=== PATIENT | female | born 1985 | race Caucasian/White ===

== ENCOUNTER → 2017-05-28 13:15 | Outpatient (CLI) | payer OTHER, SELFPAY ==
[2017-06-04 11:06] LABS: HPV Reflexed? NOT INDICATED
== END ==
PROVIDERS: Visit Provider Obstetrics & Gynecology
DX: Z12.4 Encounter for screening for malignant neoplasm of cervix (principal)
CPT/HCPCS: 88175; G0145

== ENCOUNTER → 2017-12-12 14:00 | Outpatient (CLI) | payer OTHER, SELFPAY ==
--- NOTE | 2017-12-12 14:00 | SKTAG_PTH ---
PATIENT: JODIE HARRIS LOC: [facility] U#:[id number] AGE/SX: 39/F ROOM: RE12/12/[address]: Dr. Walter Starks MD : [id number] BED: DIS: SPEC #: [id number] RECD: 12/12/17 15:41 STATUS: ADELINA TOBIAS #: [id number] ALEJANDRA: 12/12/17 14:[address]: Walter Starks DEPT: SURGICAL PATHOLOGY RECD BY: Satya Roberts Tissues: Skin appendage, NOS Procedures: Surgery Specimen Level III HEADER OPERATION: Excision of right labial skin tag PRE-OP DIAGNOSIS: N90.9 TISSUE SUBMITTED: Skin tag MICROSCOPIC DIAGNOSIS Skin tag: Fibroepithelial polyp (skin tag). SJ:venancio 12/16/17 MICROSCOPIC DESCRIPTION Slides are reviewed. GROSS DESCRIPTION Received in fixative is one container labeled with the patient's name and designated skin tag. The specimen consists of an irregular fragment of light carranza soft tissue measuring 0.2 x 0.2 x 0.1 cm. The specimen is totally submitted in one cassette. / AM:venancio 12/13/17 TC:5 CPT: 08934
== END ==
PROVIDERS: Referring Provider Obstetrics & Gynecology; Visit Provider Obstetrics & Gynecology
DX: N90.9 Noninflammatory disorder of vulva and perineum, unspecified (principal)
CPT/HCPCS: 88304; 88305

== ENCOUNTER → 2019-07-30 15:55 | Outpatient (CLI) | payer OTHER, SELFPAY ==
[2019-07-30 13:57] VITALS: BMI 24.2
[2019-08-05 06:22] LABS: HPV APTIMA, High Risk Negative (Negative)
== END ==
PROVIDERS: PCP Family Medicine; Referring Provider Nurse Practitioner Women's Health; Visit Provider Nurse Practitioner Women's Health
DX: Z12.4 Encounter for screening for malignant neoplasm of cervix (principal)
CPT/HCPCS: 87624; 88175; G0145

== ENCOUNTER → 2022-10-25 | Outpatient (CLI) | payer BC, SELFPAY ==
--- NOTE | 2022-10-25 14:49 | US_ITS ---
ACR Level 3 findings have been noted. An addendum which confirms receipt of the report will follow. INDICATION: pain, check IUD EXAMINATION: US Pelvis Non OB Complete With Transvaginal Imaging TECHNIQUE: Transabdominal and transvaginal pelvic ultrasound was performed. Grayscale, spectral waveform, and color flow Doppler evaluation of the adnexa. COMPARISON: None. FINDINGS: UTERUS: Anteverted. The uterus measures 8.3 x 4.5 x 3.3 cm. The myometrium is markedly heterogeneous and the junctional zone is difficult to delineate in multiple areas. In the posterior uterine wall there is a slightly heterogeneous 1.2 x 1 x 0.9 cm rim-enhancing hypoechoic mass. The endometrial stripe measures 3 mm in AP diameter which is within normal limits. It is slightly irregular in appearance. An IUD is present in the fundus and is slightly irregular in appearance. RIGHT OVARY: Measures 2.2 x 1.5 x 1.2 cm. Non-enlarged, normal echogenicity. There is normal arterial inflow and venous outflow present in the right ovary. LEFT OVARY: Measures 2.7 x 1.4 x 1.4 cm. Non-enlarged, normal echogenicity. There is normal arterial inflow and venous outflow present in the left ovary. FREE FLUID: None. US/Pelvic (Non ) IMPRESSION: An IUD is present in the fundus and is slightly irregular in appearance. Cannot rule out fracture. Markedly heterogeneous myometrium with difficult delineation of the junctional zone in multiple areas. Differential includes adenomyosis and pelvic inflammatory disease. Cannot rule out malignancy. Recommend female pelvic MR w/ and w/out contrast for further evaluation. 1 cm rim-enhancing hypoechoic lesion in the posterior uterine wall. Differential includes abscess, adenomyoma and leiomyoma. Electronically Signed: Hemanth Garcia MD at 20:33 EDT ,
== END | disposition home or self-care (01) ==
PROVIDERS: PCP Family Medicine; Referring Provider Nurse Practitioner Women's Health; Visit Provider Nurse Practitioner Women's Health
DX: R10.2 Pelvic and perineal pain (principal); G89.29 Other chronic pain; Z30.431 Encounter for routine checking of intrauterine contraceptive device
CPT/HCPCS: 76830; 76856

== ENCOUNTER → 2022-11-22 | Outpatient (CLI) | payer BC, SELFPAY ==
--- NOTE | 2022-11-22 13:23 | MRI_ITS ---
STUDY: MR PELVIS WITH T WITHOUT CONTRAST REASON FOR EXAM: Female, 37 years old. abnormal pelvic ultrasound - TECHNIQUE: Standardized fat and water weighted pulse sequences were obtained in all 3 orthogonal planes, pre-and post contrast administration. 11ML IV CLARISCAN was administered for the contrast portion of the examination. COMPARISON: Pelvic ultrasound dated October 25, 2022 FINDINGS: The uterus is anteflexed and is in a midline position. The uterus measures 8.39 x 3.76 x 5.16 cm. There are 2 mid uterine body anterior posterior intramural fibroids measuring 1.23 x 0.86 cm in the posterior uterine body, and 1.04 x 0.83 cm in the anterior uterine body. 3 additional tiny subcentimeter submucosal fibroids are present in the uterine fundus and proximal body. An IUD is present in the fundus and central aspect of the endometrial cavity in good position. There are no suspicious enhancing lesions of the uterus or endometrial lining on the current study. The endometrium measures 6.6 mm in thickness, and is hypoechoic. There is no demonstrated endometrial mass or fluid distention. There is no demonstrated adenomyosis on this study. Normal uterine cervix. Tiny amount of fluid seen in the cervical canal. The right ovary is visualized. The right ovary measures 2.37 x 1.70 cm. A 1.13 cm dominant right ovarian follicle/cyst is present. There is no right ovarian mass. There is no visualized right adnexal mass or complex lesion. The left ovary is visualized. The left ovary measures 2.93 x 1.23 cm. There is no left ovarian cyst or ovarian mass. There is no visualized left adnexal mass or complex lesion. Normal color vascular flow and Doppler signal is demonstrated in both ovaries. There is no fluid in the cul-de-sac. Normal urinary bladder. Normal visualized small intestine. Normal visualized colon. There is no pelvic fluid. There is no pelvic mass lesion or lymphadenopathy. Normal visualized pelvic arteries. Normal osseous structures. Normal abdominal wall. MRI/Pelvis W/WO Contrast IMPRESSION: Diffuse leiomyomatous changes of the uterus 1. The uterus measures 8.39 x 3.76 x 5.16 cm. There are 2 mid uterine body anterior posterior intramural fibroids measuring 1.23 x 0.86 cm in the posterior uterine body, and 1.04 x 0.83 cm in the anterior uterine body. 3 additional tiny subcentimeter submucosal fibroids are present in the uterine fundus and proximal body. An IUD is present in the fundus and central aspect of the endometrial cavity in good position. There are no suspicious enhancing lesions of the uterus or endometrial lining on the current study. Electronically Signed: Shawn Fuller MD at 12:50 EDT ,
== END | disposition home or self-care (01) ==
LOC: MRI 13:14
PROVIDERS: PCP Family Medicine; Referring Provider Obstetrics & Gynecology; Visit Provider Obstetrics & Gynecology
DX: N80.00 Endometriosis of the uterus, unspecified (principal); R10.2 Pelvic and perineal pain; G89.29 Other chronic pain; N73.9 Female pelvic inflammatory disease, unspecified
CPT/HCPCS: 72197; A9575

== ENCOUNTER → 2024-09-03 | Outpatient (CLI) | payer BC, SELFPAY ==
[2024-09-03 12:38] LABS: Hematocrit 40.3 % (37-47); Hemoglobin 13.5 g/dL (12.0-15.0); Immature Granulocytes Count 0.020 X10^3/uL (0.0-0.0); Mean Corp Hgb Conc 33.5 g/dL (32-36); Mean Corpuscular Volume 95.3 fL (81-99); Mean Platelet Vol. 12.7 fl (6.2-12.0); NRBC Flagged by Analyzer 0 % (0-5); Platelet Count 283 K/mm3 (150-450); RBC Distribution Width CV 11.9 % (11.6-14.6); RBC Distribution Width SD 41.6 fl (35.1-43.9); Red Blood Count 4.23 M/mm3 (4.2-5.4); White Blood Count 6.2 K/mm3 (4.4-11.0)
[2024-09-03 13:11] LABS: AST(SGOT) 22 U/L (<=31); Alanine Aminotransfer ALT/SGPT 15 U/L (<=34); Albumin, Serum 4.5 g/dL (3.5-5.0); Alkaline Phosphatase 80 U/L (35-104); Anion Gap 10 (5-15); BUN 9 mg/dL (4-19); BUN/Creat Ratio 10.8 RATIO (10-20); Calcium,Total 9.5 mg/dL (7.6-11.0); Carbon Dioxide 26.9 mmol/L (21.0-32.0); Chloride 103 mmol/L (98-108); Globulin 2.6 g/dL (2.2-4.2); Glucose 90 mg/dL (70-99); Potassium 4.3 mmol/L (3.3-5.1)
[2024-09-03 13:12] LABS: Follicle Stimulating Hormone 143.0 mIU/mL; Vitamin D,25 Hydroxy 51.3 ng/mL (30-100)
== END | disposition home or self-care (01) ==
PROVIDERS: PCP Family Medicine; Visit Provider Nurse Practitioner Family
DX: N95.1 Menopausal and female climacteric states (principal); Z13.29 Encounter for screening for other suspected endocrine disorder
CPT/HCPCS: 36415; 80053; 82306; 82670; 83001; 84403; 84439; 84443; 85025